=== PATIENT | female | born 1945 | race Caucasian/White ===

== ENCOUNTER 2017-11-25 12:07 | Emergency (ER) | payer MEDICARE, MEDICAID ==
[~2017-11-25] VITALS: Ht 147.3 cm; Wt 50.3 kg
[~2017-11-25 12:07] MED LIST: ALBU18HF2 INH; BENZ-49 PO
[2017-11-25 13:14] VITALS: BP 111/69
== END 2017-11-25 13:16 | disposition home or self-care (01) ==
LOC: ER 12:07
DX: S46.912A Strain of unspecified muscle, fascia and tendon at shoulder and upper arm level, left arm, initial encounter (principal); Z90.49 Acquired absence of other specified parts of digestive tract; Z79.899 Other long term (current) drug therapy; Z88.0 Allergy status to penicillin; Z88.5 Allergy status to narcotic agent; Z88.8 Allergy status to other drugs, medicaments and biological substances; X50.0XXA Overexertion from strenuous movement or load, initial encounter; Y93.89 Activity, other specified; Y92.89 Other specified places as the place of occurrence of the external cause; Y99.8 Other external cause status
CPT/HCPCS: 99282; A4565

== ENCOUNTER 2018-01-12 12:24 | Inpatient (IN) | payer MEDICARE, MEDICAID ==
[~2018-01-12] VITALS: Ht 147.3 cm; Wt 39.0 kg
[2018-01-12] MEDS ORDERED: ipratropium/albuterol 3ml nebule NEB ONE (12:40)
[2018-01-12] MEDS ORDERED: normal saline 1000ML IV soln IV ONE (12:40)
[2018-01-12 13:54] LABS: BASOPHILS % (AUTO) 0.4 % (0-1); EOSINOPHILS # (AUTO) 0.1 X10'3 (0-0.9); EOSINOPHILS % (AUTO) 1.5 % (0-6); HEMATOCRIT 39.4 % (35.0-45.0); HEMOGLOBIN 13.8 g/dl (12.0-16.0); LYMPHOCYTES # (AUTO) 1.9 X10'3 (1.1-4.8); LYMPHOCYTES % (AUTO) 31.8 % (21-51); MEAN CORPUSCULAR HEMOGLOBIN 30.1 PG (27.0-31.0); MEAN CORPUSCULAR HGB CONC 34.9 % (33.0-36.5); MEAN CORPUSCULAR VOLUME 86.3 FL (78-98); MEAN PLATELET VOLUME 7.7 FL (7.4-10.4); MONOCYTES # (AUTO) 0.7 X10'3 (0-0.9); MONOCYTES % (AUTO) 12.3 % (2-12); NEUTROPHILS # (AUTO) 3.3 X10'3 (1.8-7.7); PLATELET COUNT 224 X10'3 (140-440); RED BLOOD COUNT 4.57 X10'6 (4.20-5.60); RED CELL DISTRIBUTION WIDTH 13.3 % (11.5-14.5)
[2018-01-12 14:09] LABS: ALANINE AMINOTRANSFERASE 26 U/L (12-78); ALBUMIN 3.9 G/DL (3.4-5.0); ALBUMIN/GLOBULIN RATIO 1.1 (1.1-1.5); ALKALINE PHOSPHATASE 99 IU/L (46-116); ANION GAP 18 (8-16); ASPARTATE AMINO TRANSFERASE 47 U/L (10-37); BILIRUBIN,TOTAL 0.8 MG/DL (0.1-1.0); BLOOD UREA NITROGEN 31 MG/DL (7-18); BUN/CREATININE RATIO 25.2 (6.6-38.0); CALCIUM 8.8 MG/DL (8.5-10.1); CHLORIDE 95 MMOL/L (99-107); CREATININE 1.23 MG/DL (0.40-0.90); GLUCOSE 115 MG/DL (70-104); POTASSIUM 3.4 MMOL/L (3.5-5.1); SODIUM 133 MMOL/L (135-145); TOTAL CARBON DIOXIDE 19.9 MMOL/L (24-32); TOTAL PROTEIN 7.4 G/DL (6.4-8.2); eGFR 43 ML/MIN
[2018-01-12] MEDS ORDERED: aspirin 81mg tab.chew PO ONE (14:20)
[2018-01-12] MEDS ORDERED: enoxaparin 100mg/ml syringe SUBCUT ONE (14:20)
[2018-01-12] MEDS ORDERED: levoFLOXACIN-Levaquin 750MG/D5 150 ML IV ONE (14:25)
[2018-01-12] MEDS ORDERED: enoxaparin 40mg/0.4ml syringe SUBCUT ONE (14:30)
[2018-01-12] MEDS ORDERED: morphine 4 MG/ML inj SYRINge IV PRN (14:55)
[2018-01-12] MEDS ORDERED: ondansetron/PF 4mg/2ml inj IV ONE (14:55)
[2018-01-12] MEDS ORDERED: magnesium hydroxide 30ml (MOM) UD suspension PO PRN (15:15)
[2018-01-12] MEDS ORDERED: acetaminophen 325mg tablet PO PRN (15:15)
[2018-01-12] MEDS ORDERED: mag hydrox/Alum hydrox/simeth 30ml oral suspension PO PRN (15:15)
[2018-01-12 15:17] LABS: CLARITY,URINE CLOUDY (Clear); COLOR,URINE YELLOW (Yellow); GLUCOSE, URINE NEGATIVE (Neg); KETONES,URINE 40 mg/dl (Neg); LEUKOCYTE ESTERASE ,URINE NEGATIVE (Neg); NITRITES, URINE POSITIVE (Neg); OCCULT BLOOD,URINE SMALL (Neg); PH,URINE 5.5 (4.8-8.0); PROTEIN,URINE TRACE mg/dl (Neg); UA COLLECTION TYPE FOLEY CATH; UROBILINOGEN,URINE 0.2 E.U/dL (0.2-1.0)
[2018-01-12 15:25] LABS: HYALINE CASTS >30 /LPF (NEGATIVE)
[2018-01-12 15:27] LABS: BACTERIA,URINE 4+ /HPF (Neg); CELLULAR CAST 0-4 /LPF (NEGATIVE); MUCUS STRANDS FEW /LPF (Neg); RBC,URINE 0-2 /HPF (0-2); SQUAMOUS EPITHELIAL CELL,UR FEW /LPF (FEW); WBC CLUMPS,URINE FEW /HPF (NEGATIVE)
[2018-01-12 18:03] LABS: HEMOGLOBIN A1C 5.5 % (4.5-6.2)
[2018-01-12] MEDS ORDERED: NO HOME MEDS (18:22)
[2018-01-12 19:50] VITALS: BP 103/42
[2018-01-12] MEDS ORDERED: temazepam 15mg capsule PO PRN (21:00)
[2018-01-12] MEDS: doxycycline inj 100 MG in normal saline 100ml IV soln 100 ML IV SCH (21:29)
[2018-01-12 23:00] VITALS: BP 98/42
[2018-01-13 02:03] LABS: BASOPHILS % (AUTO) 0.6 % (0-1); EOSINOPHILS # (AUTO) 0.2 X10'3 (0-0.9); EOSINOPHILS % (AUTO) 4.1 % (0-6); HEMATOCRIT 29.5 % (35.0-45.0); HEMOGLOBIN 10.3 g/dl (12.0-16.0); LYMPHOCYTES # (AUTO) 1.5 X10'3 (1.1-4.8); MEAN CORPUSCULAR HEMOGLOBIN 30.4 PG (27.0-31.0); MEAN CORPUSCULAR HGB CONC 34.9 % (33.0-36.5); MEAN CORPUSCULAR VOLUME 87.3 FL (78-98); MEAN PLATELET VOLUME 8.1 FL (7.4-10.4); MONOCYTES # (AUTO) 0.5 X10'3 (0-0.9); MONOCYTES % (AUTO) 11.7 % (2-12); NEUTROPHILS # (AUTO) 1.7 X10'3 (1.8-7.7); NEUTROPHILS % (AUTO) 43.6 % (42-75); PLATELET COUNT 160 X10'3 (140-440); RED BLOOD COUNT 3.37 X10'6 (4.20-5.60); RED CELL DISTRIBUTION WIDTH 13.4 % (11.5-14.5); WHITE BLOOD COUNT 3.9 X10'3 (4.5-11.0)
[2018-01-13 02:18] LABS: ALBUMIN 2.7 G/DL (3.4-5.0); ANION GAP 8 (8-16); BLOOD UREA NITROGEN 17 MG/DL (7-18); BUN/CREATININE RATIO 22.4 (6.6-38.0); CALCIUM 7.3 MG/DL (8.5-10.1); CHLORIDE 105 MMOL/L (99-107); CHOL/HDL RATIO 6.3 (0.00-4.99); CHOLESTEROL 183 MG/DL (0-200); CREATININE 0.76 MG/DL (0.40-0.90); GLUCOSE 109 MG/DL (70-104); HDL CHOLESTEROL 29 MG/DL (35-60); LDL CHOLESTEROL 136 MG/DL (50-100); MAGNESIUM 1.8 MG/DL (1.5-2.4); POTASSIUM 3.2 MMOL/L (3.5-5.1); SODIUM 136 MMOL/L (135-145); TOTAL CARBON DIOXIDE 23.5 MMOL/L (24-32); TRIGLYCERIDES 99 MG/DL (20-135); eGFR 74 ML/MIN
[2018-01-13] MEDS ORDERED: potassium Cl 40MEQ/NS 500ml 500 ML IV PRN ×2 (02:35)
[2018-01-13 03:00] VITALS: BP 109/46
[2018-01-13 06:00] VITALS: BP 119/44
[2018-01-13] MEDS: doxycycline inj 100 MG in normal saline 100ml IV soln 100 ML IV SCH (07:57)
[2018-01-13 11:00] VITALS: BP 116/41
[2018-01-13] MEDS ORDERED: clopidogrel 75mg tablet PO SCH (14:50)
[2018-01-13] MEDS ORDERED: levoFLOXACIN-Levaquin 500mg/D5 100 ML IV SCH (14:50)
[2018-01-13 15:00] VITALS: BP 127/48
[2018-01-13] MEDS: doxycycline hyclate 100mg tablet.DR PO SCH (16:45)
[2018-01-13 19:00] VITALS: BP 148/43
[2018-01-13] MEDS ORDERED: carVEDilol 3.125mg tablet PO SCH (20:00)
[2018-01-13] MEDS: lactobacillus rhamnosus 10,000 MMU CELLS/CAPSULE PO SCH (20:14)
[2018-01-13 23:00] VITALS: BP 150/49
[2018-01-14 03:00] VITALS: BP 120/46
[2018-01-14 06:00] VITALS: BP 106/35
[2018-01-14 06:27] LABS: BASOPHILS % (AUTO) 0.5 % (0-1); EOSINOPHILS # (AUTO) 0.4 X10'3 (0-0.9); EOSINOPHILS % (AUTO) 7.6 % (0-6); HEMOGLOBIN 11.1 g/dl (12.0-16.0); LYMPHOCYTES # (AUTO) 2.4 X10'3 (1.1-4.8); LYMPHOCYTES % (AUTO) 48.9 % (21-51); MEAN CORPUSCULAR HEMOGLOBIN 30.1 PG (27.0-31.0); MEAN CORPUSCULAR HGB CONC 34.5 % (33.0-36.5); MEAN CORPUSCULAR VOLUME 87.2 FL (78-98); MEAN PLATELET VOLUME 8.1 FL (7.4-10.4); MONOCYTES # (AUTO) 0.3 X10'3 (0-0.9); MONOCYTES % (AUTO) 5.9 % (2-12); NEUTROPHILS # (AUTO) 1.8 X10'3 (1.8-7.7); NEUTROPHILS % (AUTO) 37.1 % (42-75); PLATELET COUNT 142 X10'3 (140-440); RED BLOOD COUNT 3.67 X10'6 (4.20-5.60); RED CELL DISTRIBUTION WIDTH 13.1 % (11.5-14.5); WHITE BLOOD COUNT 4.9 X10'3 (4.5-11.0)
[2018-01-14] MEDS: doxycycline hyclate 100mg tablet.DR PO SCH (06:38)
[2018-01-14 06:44] LABS: ALBUMIN 2.9 G/DL (3.4-5.0); ANION GAP 9 (8-16); BLOOD UREA NITROGEN 9 MG/DL (7-18); CALCIUM 8.4 MG/DL (8.5-10.1); CHLORIDE 106 MMOL/L (99-107); CREATININE 0.69 MG/DL (0.40-0.90); GLUCOSE 96 MG/DL (70-104); MAGNESIUM 1.5 MG/DL (1.5-2.4); POTASSIUM 3.7 MMOL/L (3.5-5.1); SODIUM 137 MMOL/L (135-145); TOTAL CARBON DIOXIDE 21.6 MMOL/L (24-32); eGFR 83 ML/MIN
[2018-01-14] MEDS ORDERED: atorvastatin 20mg tablet PO SCH (08:00)
[2018-01-14] MEDS: lactobacillus rhamnosus 10,000 MMU CELLS/CAPSULE PO SCH (08:25)
[2018-01-14] MEDS ORDERED: levoFLOXACIN 500mg tablet PO SCH (11:00)
[2018-01-14] MEDS ORDERED: CIPR-230 PO (11:42)
[2018-01-14] MEDS ORDERED: ATOR40TA71 PO (11:42)
[2018-01-14] MEDS ORDERED: METO-395 PO (11:42)
[2018-01-14] MEDS ORDERED: ASPI81TA52 PO (11:42)
== END 2018-01-14 14:20 | disposition home health service (06) | DRG 871 ==
LOC: ER 12:24 → ED HOLD 15:15 → EDBEDREQ 16:36 → CMPBEDREQ 19:41 → PCU 3S 19:43
PROVIDERS: ADMIT Family Medicine; ATTEND Family Medicine
DX: A41.9 Sepsis, unspecified organism (principal); I21.4 Non-ST elevation (NSTEMI) myocardial infarction; N17.0 Acute kidney failure with tubular necrosis; N18.4 Chronic kidney disease, stage 4 (severe); N39.0 Urinary tract infection, site not specified; E87.1 Hypo-osmolality and hyponatremia; Z60.2 Problems related to living alone; E87.6 Hypokalemia; J44.9 Chronic obstructive pulmonary disease, unspecified; Z90.49 Acquired absence of other specified parts of digestive tract; Z88.5 Allergy status to narcotic agent; Z88.0 Allergy status to penicillin; Z88.8 Allergy status to other drugs, medicaments and biological substances; Z79.899 Other long term (current) drug therapy; Z87.891 Personal history of nicotine dependence
CPT/HCPCS: 36415; 71046; 80048; 80053; 80061; 81001; 83036; 83605; 83735; 84145; 84484; 85025; 87040; 87070; 87077; 87088; 87186; 93005; 93306; 94640; 94760; 96372; 96374; 96375; 99285; A4315; A4565; A6257; J1650; J1956; J2405; J3480; J3490; J7030

== ENCOUNTER 2020-08-06 12:18 | Emergency (ER) | payer MEDICARE, MEDICAID ==
[~2020-08-06] VITALS: Ht 147.3 cm; Wt 49.4 kg
[~2020-08-06 12:18] MED LIST changes: -ALBU18HF2 INH; +ASPI81TA52 PO; +ATOR40TA71 PO; -BENZ-49 PO; +METO-395 PO
[2020-08-06 12:31] VITALS: BP 159/63
== END 2020-08-06 15:37 | disposition home or self-care (01) ==
LOC: ER 12:19
DX: R07.81 Pleurodynia (principal); Z90.89 Acquired absence of other organs; Z98.890 Other specified postprocedural states; Z88.6 Allergy status to analgesic agent; Z88.8 Allergy status to other drugs, medicaments and biological substances; Z88.5 Allergy status to narcotic agent; Z79.82 Long term (current) use of aspirin; Z79.899 Other long term (current) drug therapy
CPT/HCPCS: 71046; 99283

== ENCOUNTER 2021-09-02 09:28 | Emergency (ER) | payer MEDICARE, MEDICAID ==
[~2021-09-02] VITALS: Ht 147.3 cm; Wt 45.5 kg
[2021-09-02 09:47] VITALS: BP 131/49
== END 2021-09-02 13:09 | disposition home or self-care (01) ==
LOC: ER 09:28
DX: M25.532 Pain in left wrist (principal); M25.432 Effusion, left wrist; Z90.49 Acquired absence of other specified parts of digestive tract; Z88.8 Allergy status to other drugs, medicaments and biological substances; Z88.0 Allergy status to penicillin; Z88.6 Allergy status to analgesic agent; Z79.899 Other long term (current) drug therapy; Z79.82 Long term (current) use of aspirin
CPT/HCPCS: 73080; 99283

== ENCOUNTER 2023-01-12 17:14 | Inpatient (IN) | payer MEDICARE, MEDICAID ==
[~2023-01-12] VITALS: Ht 152.4 cm; Wt 45.5 kg
[2023-01-12] MEDS ORDERED: normal saline 1000ML IV soln IVB ONE (17:30)
[2023-01-12] MEDS ORDERED: ondansetron/PF 4mg/2ml inj IV ONE (17:30)
[2023-01-12 17:48] LABS: ABG BASE EXCESS -12.2 mmol/L (-2.0-2.0); ABG HCO3 10.2 mmol/L (22.0-26.0); ABG OXYGEN SATURATION 99.3 % (94-97); ABG PCO2 (T) 17.5 mmHg (32.0-45.0); ABG PO2 (T) 469.5 mmHg (75.0-100.0); ALLEN'S TEST POSITIVE; FCOHb 0.3 % (0.0-3.9); FLOW 15 L/min; FMetHb 0.4 % (0.0-1.5); FO2Hb 98.6 % (94-97); PATIENT TEMPERATURE 36.6; TOTAL HEMOGLOBIN 13.9 G/dl (12.0-16.0)
[2023-01-12 18:18] LABS: BASOPHILS # (AUTO) 0.1 X10'3 (0-0.2); BASOPHILS % (AUTO) 0.6 % (0-1); EOSINOPHILS % (AUTO) 0 % (0-6); HEMOGLOBIN 12.6 g/dl (12.0-16.0); LYMPHOCYTES # (AUTO) 2.2 X10'3 (1.1-4.8); LYMPHOCYTES % (AUTO) 19.6 % (21-51); MEAN CORPUSCULAR HEMOGLOBIN 31.2 PG (27.0-31.0); MEAN CORPUSCULAR HGB CONC 34.1 g/dL (33.0-36.5); MEAN CORPUSCULAR VOLUME 91.4 FL (78-98); MONOCYTES # (AUTO) 1.2 X10'3 (0-0.9); NEUTROPHILS # (AUTO) 7.7 X10'3 (1.8-7.7); NEUTROPHILS % (AUTO) 68.8 % (42-75); PLATELET COUNT 281 X10'3 (140-440); RED BLOOD COUNT 4.04 X10'6 (4.20-5.60); RED CELL DISTRIBUTION WIDTH 13.9 % (11.5-14.5); WHITE BLOOD COUNT 11.2 X10'3 (4.5-11.0)
--- NOTE | 2023-01-12 18:24 | NUR ---
Yvonne [phone] Vandana [phone]
--- NOTE | 2023-01-12 18:25 | NUR ---
Vandana [phone]
[2023-01-12 18:40] LABS: ALANINE AMINOTRANSFERASE 19 U/L (12-78); ALBUMIN 3.2 G/DL (3.4-5.0); ALBUMIN/GLOBULIN RATIO 1.3 (1.1-1.5); ALKALINE PHOSPHATASE 93 IU/L (46-116); ANION GAP 24 (8-16); ASPARTATE AMINO TRANSFERASE 26 U/L (10-37); BILIRUBIN,TOTAL 0.9 MG/DL (0.1-1.0); BLOOD UREA NITROGEN 50 MG/DL (7-18); BUN/CREATININE RATIO 18.1 (10.0-20.0); CALCIUM 7.9 MG/DL (8.5-10.1); CHLORIDE 119 MMOL/L (99-107); CREATININE 2.77 MG/DL (0.40-0.90); ETHANOL < 0.010 GM/DL (0.0-0.010); GLUCOSE 79 MG/DL (70-104); LIPASE 104 U/L (73-393); MAGNESIUM 2.4 MG/DL (1.5-2.4); POTASSIUM 3.1 MMOL/L (3.5-5.1); TOTAL CARBON DIOXIDE 15.3 MMOL/L (24-32); TOTAL PROTEIN 5.7 G/DL (6.4-8.2); eGFR 17 ML/MIN
[2023-01-12 18:46] LABS: SODIUM 158 MMOL/L (135-145)
[2023-01-12 18:50] LABS: ACETAMINOPHEN < 2.0 UG/ML (10-30)
[2023-01-12] MEDS ORDERED: sodium chloride 0.45% 1,000 ML IV ONE (19:50)
[2023-01-12] MEDS ORDERED: temazepam 15mg capsule PO PRN (21:00)
[2023-01-12] MEDS ORDERED: magnesium 4gm in 100ml NS 100 ML IV PRN (23:05)
[2023-01-12] MEDS ORDERED: magnesium hydroxide 30ml (MOM) UD suspension PO PRN (23:05)
[2023-01-12] MEDS ORDERED: potassium Cl 20 mEq SR tablet PO PRN (23:05)
[2023-01-12] MEDS ORDERED: magnesium Cl slow-release 64mg tablet PO PRN (23:05)
[2023-01-12] MEDS ORDERED: potassium Cl 40MEQ/1/2NS 520ml 520 ML IV PRN (23:05)
[2023-01-12] MEDS ORDERED: bisacodyl 10mg suppository rectal RC PRN (23:05)
[2023-01-12] MEDS ORDERED: diphenhydrAMINE 25mg capsule PO PRN (23:05)
[2023-01-12] MEDS ORDERED: magnesium 2GM in 50ml NS 50 ML IV PRN (23:05)
[2023-01-12] MEDS ORDERED: ondansetron/PF 4mg/2ml inj IV PRN (23:05)
[2023-01-12] MEDS ORDERED: mag hydrox/Alum hydrox/simeth 30ml oral suspension PO PRN (23:05)
[2023-01-12] MEDS ORDERED: ipratropium/albuterol 3ml nebule NEB PRN (23:05)
[2023-01-12] MEDS ORDERED: ondansetron 4mg rapidly disintigrating tab PO PRN (23:05)
[2023-01-12] MEDS ORDERED: diphenhydrAMINE 50 mg/ml inj IV PRN (23:05)
[2023-01-12] MEDS ORDERED: acetaminophen 650mg rectal suppository RC PRN (23:05)
[2023-01-12] MEDS ORDERED: acetaminophen 325mg tablet PO PRN ×2 (23:05)
[2023-01-12] MEDS ORDERED: heparin 25,000 UNIT/250ml bag 250 ML IV PRN (23:10)
[2023-01-12] MEDS ORDERED: azithromycin/NS 500mg/250ml 250 ML IV SCH (23:11)
[2023-01-12] MEDS: clopidogrel 75mg tablet PO SCH (23:30)
[2023-01-12 23:37] LABS: HEMOGLOBIN A1C 5.2 % (4.5-6.2)
[2023-01-12 23:45] LABS: CREATINE KINASE 526 U/L (26-192)
[2023-01-13 00:11] LABS: D-DIMER 2.46 MG/L FEU (0-0.50)
[2023-01-13 00:12] LABS: APTT 20 SECONDS (22-32)
[2023-01-13] MEDS ORDERED: NO HOME MEDS (00:18)
[2023-01-13] MEDS ORDERED: LIDOcaine 2% 10ml TOPICAL JELLY (Urojet) MM ONE (01:10)
[2023-01-13] MEDS: LidoCAINE 2% Topical Jelly 11mL syringe MM ONE ×2 (01:15→01:42)
[2023-01-13] MEDS: dextrose 5%-water 1,000 ML IV SCH ×2 (01:42→19:10)
[2023-01-13] MEDS: heparin 10,000 units/1 ML INJ IV PRN ×2 (02:06→15:56)
[2023-01-13 02:30] VITALS: BP 97/49
[2023-01-13 06:56] LABS: BASOPHILS # (AUTO) 0.1 X10'3 (0-0.2); BASOPHILS % (AUTO) 0.5 % (0-1); EOSINOPHILS % (AUTO) 0.2 % (0-6); HEMATOCRIT 37.1 % (35.0-45.0); HEMOGLOBIN 12.5 g/dl (12.0-16.0); LYMPHOCYTES # (AUTO) 2.7 X10'3 (1.1-4.8); LYMPHOCYTES % (AUTO) 24.5 % (21-51); MEAN CORPUSCULAR HEMOGLOBIN 30.6 PG (27.0-31.0); MEAN CORPUSCULAR HGB CONC 33.6 g/dL (33.0-36.5); MEAN CORPUSCULAR VOLUME 90.9 FL (78-98); MEAN PLATELET VOLUME 8.5 FL (7.4-10.4); MONOCYTES % (AUTO) 9.1 % (2-12); NEUTROPHILS # (AUTO) 7.3 X10'3 (1.8-7.7); NEUTROPHILS % (AUTO) 65.7 % (42-75); PLATELET COUNT 225 X10'3 (140-440); RED BLOOD COUNT 4.08 X10'6 (4.20-5.60); RED CELL DISTRIBUTION WIDTH 14.2 % (11.5-14.5)
[2023-01-13 07:00] VITALS: BP 96/41
[2023-01-13 07:02] LABS: ALANINE AMINOTRANSFERASE 30 U/L (12-78); ALBUMIN 3.1 G/DL (3.4-5.0); ALBUMIN/GLOBULIN RATIO 1.2 (1.1-1.5); ALKALINE PHOSPHATASE 82 IU/L (46-116); ANION GAP 15 (8-16); ASPARTATE AMINO TRANSFERASE 65 U/L (10-37); BILIRUBIN,TOTAL 0.9 MG/DL (0.1-1.0); BLOOD UREA NITROGEN 38 MG/DL (7-18); BUN/CREATININE RATIO 27.1 (10.0-20.0); CALCIUM 7.4 MG/DL (8.5-10.1); CHLORIDE 121 MMOL/L (99-107); CHOL/HDL RATIO 6.2 (0.00-4.99); CHOLESTEROL 267 MG/DL (0-200); GLUCOSE 157 MG/DL (70-104); HDL CHOLESTEROL 43 MG/DL (35-60); LDL CHOLESTEROL 170 MG/DL (50-100); TOTAL CARBON DIOXIDE 19.1 MMOL/L (24-32); TOTAL PROTEIN 5.6 G/DL (6.4-8.2); TRIGLYCERIDES 106 MG/DL (20-135); eGFR 36 ML/MIN
[2023-01-13 07:04] LABS: POTASSIUM 3.2 MMOL/L (3.5-5.1)
[2023-01-13 07:06] LABS: SODIUM 155 MMOL/L (135-145)
--- NOTE | 2023-01-13 07:15 | NUR ---
PAGER ID: [phone] MESSAGE: Nikita [id number], Pt has a critical lab value Na - 155. Garrison [phone]
--- NOTE | 2023-01-13 07:16 | NUR ---
Patient in room PCU 3026. I have received report from Nelson LIMA and had the opportunity to ask questions and assume patient care.
[2023-01-13] MEDS: pantoprazole 40mg Tablet.DR PO SCH ×2 (07:30→08:06)
--- NOTE | 2023-01-13 07:31 | NUR ---
CRITICAL LAB VALUE TAKEN FROM LAB, REPORTED TO PRIMARY RN.
[2023-01-13] MEDS: K and/or MAG REPLACEMENT MC SCH ×2 (08:00→20:00)
[2023-01-13] MEDS: atorvastatin 10mg tablet PO SCH ×2 (08:00→08:06)
[2023-01-13] MEDS: docusate sod 100mg capsule PO SCH ×3 (08:00→21:15)
[2023-01-13] MEDS: potassium Cl 20 mEq SR tablet PO PRN ×2 (08:05→21:15)
[2023-01-13] MEDS: clopidogrel 75mg tablet PO SCH (08:06)
--- NOTE | 2023-01-13 09:51 | NUR ---
PAGER ID: [phone] MESSAGE: Nikita [id number], Pt has critical lab value PTT 96. Garrison [phone]
[2023-01-13 11:00] VITALS: BP 106/43
--- NOTE | 2023-01-13 11:49 | NUR ---
MICRO RESULTS RECEIVED FROM LAB, REPORTED TO PRIMARY RN.
--- NOTE | 2023-01-13 11:57 | NUR ---
Pt refused morning meds. She took her Plavix first then when I tried to give her the rest of her meds she spit them out and said they tasted bad. Pt is confused and A&Ox2 currently.
--- NOTE | 2023-01-13 11:59 | NUR ---
Pt tested positive for blood cultures aerobic bottle drawn at @1752 from the left arm for Gram + cocci/ clusters. Dr Timmons was notified in person on the floor.
[2023-01-13] MEDS ORDERED: VANCOMYCIN 750MG IV in NS 250 ML IV ONE (12:30)
[2023-01-13 13:00] VITALS: BP 101/43
--- NOTE | 2023-01-13 15:04 | NUR ---
PAGER ID: [phone] MESSAGE: Nikita [id number], Does cardiology have anything planned for her or can we start a diet for her? Garrison [phone]
--- NOTE | 2023-01-13 16:03 | NUR ---
PAGER ID: [phone] MESSAGE: Nikita [id number], Has cardiology contacted you with a plan for pt? are we doing any studies or procedures for pt or can we feed her? Garrison [phone]
--- NOTE | 2023-01-13 16:24 | NUR ---
Pt's BP has been low with a 1500 BP of 101/43 (59). I took a manual BP after and it was 104/54.
[2023-01-13 18:00] VITALS: BP 103/37
--- NOTE | 2023-01-13 19:00 | NUR ---
Patient in room PCU 3026. I have received report from Garrison COLEMAN and had the opportunity to ask questions and assume patient care.
--- NOTE | 2023-01-13 19:06 | NUR ---
Problems reprioritized. Patient report given, questions answered & plan of care reviewed with Aaliyah COLEMAN.
[2023-01-13] MEDS ORDERED: vancomycin/NS 1 GM ADD-VANTAGE 250 ML IV SCH ×2 (20:00)
[2023-01-13 22:00] VITALS: BP 115/37
[2023-01-14] VITALS (13 sets, daily range): BP systolic 105–132; BP diastolic 33–73
[2023-01-14] MEDS ORDERED: regadenoson 0.4mg/5ml syringe IV PRN (01:45)
[2023-01-14] MEDS ORDERED: metoprolol tartrate 1mg/ml inj IV PRN (01:45)
[2023-01-14] MEDS ORDERED: nitroGLYCERIN 0.4mg SUBLingual tab SL PRN (01:45)
[2023-01-14] MEDS ORDERED: aminophylline 250mg/10ml inj. IV PRN (01:45)
[2023-01-14] MEDS: dextrose 5%-water 1,000 ML IV SCH (04:31)
--- NOTE | 2023-01-14 06:59 | NUR ---
Problems reprioritized. Patient report given, questions answered & plan of care reviewed with Marybeth COLEMAN.
--- NOTE | 2023-01-14 07:08 | NUR ---
Patient in room PCU 3026. I have received report from VIRGINIA Fischer and had the opportunity to ask questions and assume patient care.
[2023-01-14 07:48] LABS: BASOPHILS # (AUTO) 0.1 X10'3 (0-0.2); BASOPHILS % (AUTO) 0.7 % (0-1); EOSINOPHILS # (AUTO) 0.3 X10'3 (0-0.9); EOSINOPHILS % (AUTO) 3.6 % (0-6); HEMATOCRIT 32.9 % (35.0-45.0); HEMOGLOBIN 11.1 g/dl (12.0-16.0); LYMPHOCYTES # (AUTO) 2.8 X10'3 (1.1-4.8); MEAN CORPUSCULAR HEMOGLOBIN 30.8 PG (27.0-31.0); MEAN CORPUSCULAR HGB CONC 33.8 g/dL (33.0-36.5); MEAN PLATELET VOLUME 8.4 FL (7.4-10.4); MONOCYTES # (AUTO) 0.4 X10'3 (0-0.9); MONOCYTES % (AUTO) 4.8 % (2-12); NEUTROPHILS # (AUTO) 5.1 X10'3 (1.8-7.7); NEUTROPHILS % (AUTO) 58.9 % (42-75); PLATELET COUNT 173 X10'3 (140-440); RED BLOOD COUNT 3.62 X10'6 (4.20-5.60); RED CELL DISTRIBUTION WIDTH 13.7 % (11.5-14.5); WHITE BLOOD COUNT 8.6 X10'3 (4.5-11.0)
[2023-01-14 07:58] LABS: ALANINE AMINOTRANSFERASE 34 U/L (12-78); ALBUMIN 2.8 G/DL (3.4-5.0); ALBUMIN/GLOBULIN RATIO 1.1 (1.1-1.5); ALKALINE PHOSPHATASE 76 IU/L (46-116); ANION GAP 9 (8-16); ASPARTATE AMINO TRANSFERASE 52 U/L (10-37); BILIRUBIN,TOTAL 0.6 MG/DL (0.1-1.0); BLOOD UREA NITROGEN 14 MG/DL (7-18); BUN/CREATININE RATIO 17.9 (10.0-20.0); CALCIUM 7.7 MG/DL (8.5-10.1); CHLORIDE 113 MMOL/L (99-107); CREATININE 0.78 MG/DL (0.40-0.90); GLUCOSE 118 MG/DL (70-104); POTASSIUM 3.6 MMOL/L (3.5-5.1); SODIUM 143 MMOL/L (135-145); TOTAL CARBON DIOXIDE 20.7 MMOL/L (24-32); TOTAL PROTEIN 5.3 G/DL (6.4-8.2); eGFR 71 ML/MIN
[2023-01-14] MEDS: K and/or MAG REPLACEMENT MC SCH ×2 (08:00→20:00)
--- NOTE | 2023-01-14 08:11 | NUR ---
cardiac stress test on hold due to elevated troponins, primary RN is going to consult with Dr Timmons about plan of care
--- NOTE | 2023-01-14 10:42 | NUR ---
PAGER ID: [phone] MESSAGE: Pt in rm 3026B has a stress test and the audiovisual aids technician wants confirmation that you do indeed want to have this pt stressed today with a Troponin of 6681? Please advise. VIRGINIA Rueda [phone]
[2023-01-14] MEDS: docusate sod 100mg capsule PO SCH ×2 (10:49→20:00)
[2023-01-14] MEDS: atorvastatin 10mg tablet PO SCH (10:50)
[2023-01-14] MEDS: clopidogrel 75mg tablet PO SCH (10:50)
[2023-01-14] MEDS: pantoprazole 40mg Tablet.DR PO SCH (10:50)
--- NOTE | 2023-01-14 11:15 | NUR ---
contacted Brianna Oliveros NP and Dr Benavides regarding doing cardiac stress test with elevated troponins. Dr Benavides said to continue with doing stress test and he was aware of elevated troponins. He will be in house when we do stress test at 1330. Per primary RN, Marybeth, pt has been stable,no chest pain/discomfort today, skin is pink, warm, and dry, no SOB
[2023-01-14] MEDS ORDERED: vancomycin/NS 1 GM ADD-VANTAGE 250 ML IV SCH (13:00)
[2023-01-14] MEDS ORDERED: vancomycin inj 500 MG in normal saline 100ml IV soln 100 ML IV SCH ×2 (13:00→14:00)
--- NOTE | 2023-01-14 14:15 | NUR ---
Pt off the floor for Nuc Med test
--- NOTE | 2023-01-14 18:07 | NUR ---
PAGER ID: [phone] MESSAGE: Pt in [id number] Aleksandrakevin Carballoris please change her code status to DNR. Thank you. VIRGINIA Rueda [phone]
--- NOTE | 2023-01-14 18:45 | NUR ---
Patient in room PCU 3026. I have received report from Marybeth COLEMAN and had the opportunity to ask questions and assume patient care.
[2023-01-14] MEDS: metoprolol succinate 25mg (24-HOUR) SR. Tablet PO SCH (23:04)
[2023-01-15 02:00] VITALS: BP 116/41
[2023-01-15 06:00] VITALS: BP 108/40
--- NOTE | 2023-01-15 06:30 | NUR ---
Patient in room PCU 3026. I have received report from VIRGINIA Fischer and had the opportunity to ask questions and assume patient care.
[2023-01-15 06:49] LABS: BASOPHILS % (AUTO) 0.8 % (0-1); EOSINOPHILS # (AUTO) 0.5 X10'3 (0-0.9); EOSINOPHILS % (AUTO) 8.2 % (0-6); HEMATOCRIT 30.2 % (35.0-45.0); HEMOGLOBIN 10.1 g/dl (12.0-16.0); LYMPHOCYTES # (AUTO) 2.2 X10'3 (1.1-4.8); LYMPHOCYTES % (AUTO) 35.6 % (21-51); MEAN CORPUSCULAR HEMOGLOBIN 30.4 PG (27.0-31.0); MEAN CORPUSCULAR HGB CONC 33.6 g/dL (33.0-36.5); MEAN CORPUSCULAR VOLUME 90.5 FL (78-98); MEAN PLATELET VOLUME 8.3 FL (7.4-10.4); MONOCYTES # (AUTO) 0.3 X10'3 (0-0.9); MONOCYTES % (AUTO) 5.5 % (2-12); NEUTROPHILS # (AUTO) 3.1 X10'3 (1.8-7.7); NEUTROPHILS % (AUTO) 49.9 % (42-75); PLATELET COUNT 183 X10'3 (140-440); RED BLOOD COUNT 3.33 X10'6 (4.20-5.60); RED CELL DISTRIBUTION WIDTH 13.4 % (11.5-14.5); WHITE BLOOD COUNT 6.3 X10'3 (4.5-11.0)
--- NOTE | 2023-01-15 07:02 | NUR ---
Problems reprioritized. Patient report given, questions answered & plan of care reviewed with Marybeth COLEMAN.
[2023-01-15 07:04] LABS: ALANINE AMINOTRANSFERASE 30 U/L (12-78); ALBUMIN 2.6 G/DL (3.4-5.0); ALBUMIN/GLOBULIN RATIO 1.1 (1.1-1.5); ALKALINE PHOSPHATASE 75 IU/L (46-116); ANION GAP 9 (8-16); ASPARTATE AMINO TRANSFERASE 34 U/L (10-37); BILIRUBIN,TOTAL 0.4 MG/DL (0.1-1.0); BLOOD UREA NITROGEN 8 MG/DL (7-18); BUN/CREATININE RATIO 11.8 (10.0-20.0); CALCIUM 7.9 MG/DL (8.5-10.1); CHLORIDE 113 MMOL/L (99-107); CREATININE 0.68 MG/DL (0.40-0.90); GLUCOSE 106 MG/DL (70-104); POTASSIUM 3.7 MMOL/L (3.5-5.1); SODIUM 144 MMOL/L (135-145); TOTAL CARBON DIOXIDE 22.1 MMOL/L (24-32); TOTAL PROTEIN 4.9 G/DL (6.4-8.2); eGFR 83 ML/MIN
[2023-01-15] MEDS: docusate sod 100mg capsule PO SCH ×2 (08:00→20:00)
[2023-01-15] MEDS: atorvastatin 10mg tablet PO SCH (08:02)
[2023-01-15] MEDS: pantoprazole 40mg Tablet.DR PO SCH (08:03)
[2023-01-15] MEDS: clopidogrel 75mg tablet PO SCH (08:03)
[2023-01-15] MEDS: K and/or MAG REPLACEMENT MC SCH ×2 (08:05→20:00)
[2023-01-15 11:00] VITALS: BP 108/31
[2023-01-15 15:00] VITALS: BP 108/36
[2023-01-15 18:48] VITALS: BP 106/37
--- NOTE | 2023-01-15 18:50 | NUR ---
Patient in room [facility] 302. I have received report from aJida COLEMAN and had the opportunity to ask questions and assume patient care. Addendum: 01/16/23 at 0056 by Uzma Rowe RN Patient in room [place] [address]. I have received report from Marybeth COLEMAN and had the opportunity to ask questions and assume patient care.
[2023-01-15] MEDS: metoprolol succinate 25mg (24-HOUR) SR. Tablet PO SCH (20:07)
[2023-01-15 22:00] VITALS: BP 113/30
[2023-01-16 02:00] VITALS: BP 139/43
[2023-01-16 06:00] VITALS: BP 118/37
[2023-01-16 06:18] LABS: BASOPHILS % (AUTO) 0.8 % (0-1); EOSINOPHILS # (AUTO) 0.4 X10'3 (0-0.9); EOSINOPHILS % (AUTO) 7.8 % (0-6); HEMATOCRIT 27.1 % (35.0-45.0); HEMOGLOBIN 9.4 g/dl (12.0-16.0); LYMPHOCYTES # (AUTO) 1.8 X10'3 (1.1-4.8); LYMPHOCYTES % (AUTO) 33.8 % (21-51); MEAN CORPUSCULAR HEMOGLOBIN 31.2 PG (27.0-31.0); MEAN CORPUSCULAR HGB CONC 34.8 g/dL (33.0-36.5); MEAN CORPUSCULAR VOLUME 89.7 FL (78-98); MEAN PLATELET VOLUME 8.9 FL (7.4-10.4); MONOCYTES # (AUTO) 0.3 X10'3 (0-0.9); MONOCYTES % (AUTO) 5.4 % (2-12); NEUTROPHILS # (AUTO) 2.8 X10'3 (1.8-7.7); NEUTROPHILS % (AUTO) 52.2 % (42-75); PLATELET COUNT 180 X10'3 (140-440); RED BLOOD COUNT 3.03 X10'6 (4.20-5.60); RED CELL DISTRIBUTION WIDTH 13.3 % (11.5-14.5); WHITE BLOOD COUNT 5.4 X10'3 (4.5-11.0)
--- NOTE | 2023-01-16 06:33 | NUR ---
Patient in room PCU 3026. I have received report from Anatoliy COLEMAN and had the opportunity to ask questions and assume patient care.
--- NOTE | 2023-01-16 06:37 | NUR ---
Problems reprioritized. Patient report given, questions answered & plan of care reviewed with Yvonne LIMA.
[2023-01-16 06:51] LABS: ALANINE AMINOTRANSFERASE 26 U/L (12-78); ALBUMIN 2.6 G/DL (3.4-5.0); ALBUMIN/GLOBULIN RATIO 1.1 (1.1-1.5); ALKALINE PHOSPHATASE 70 IU/L (46-116); ANION GAP 8 (8-16); ASPARTATE AMINO TRANSFERASE 23 U/L (10-37); BILIRUBIN,TOTAL 0.3 MG/DL (0.1-1.0); BLOOD UREA NITROGEN 9 MG/DL (7-18); BUN/CREATININE RATIO 13.8 (10.0-20.0); CHLORIDE 115 MMOL/L (99-107); CREATININE 0.65 MG/DL (0.40-0.90); GLUCOSE 95 MG/DL (70-104); POTASSIUM 3.8 MMOL/L (3.5-5.1); SODIUM 147 MMOL/L (135-145); TOTAL CARBON DIOXIDE 24.2 MMOL/L (24-32); TOTAL PROTEIN 4.9 G/DL (6.4-8.2); eGFR 88 ML/MIN
[2023-01-16] MEDS: K and/or MAG REPLACEMENT MC SCH ×2 (07:49→08:05)
[2023-01-16] MEDS: atorvastatin 10mg tablet PO SCH (08:00)
[2023-01-16] MEDS: clopidogrel 75mg tablet PO SCH (08:00)
[2023-01-16] MEDS: docusate sod 100mg capsule PO SCH (08:00)
[2023-01-16] MEDS: pantoprazole 40mg Tablet.DR PO SCH (09:14)
[2023-01-16 11:00] VITALS: BP 116/35
[2023-01-17] MEDS ORDERED: VANCOMYCIN LEVEL IV ONE (12:30)
== END 2023-01-16 15:41 | DRG 280 ==
LOC: ER 17:15 → ED HOLD 23:08 → PCU 3S 01-13 02:45
PROVIDERS: ADMIT Family Medicine; ATTEND Internal Medicine
PROC: 4A02XM4 Measurement of Cardiac Total Activity, External Approach (ICD-10-PCS; principal; 2023-01-14)
PROC: 3E073KZ Introduction of Other Diagnostic Substance into Coronary Artery, Percutaneous Approach (ICD-10-PCS; 2023-01-14)
DX: I11.0 Hypertensive heart disease with heart failure (principal); G93.41 Metabolic encephalopathy; I21.A1 Myocardial infarction type 2; J18.9 Pneumonia, unspecified organism; J96.01 Acute respiratory failure with hypoxia; I50.43 Acute on chronic combined systolic (congestive) and diastolic (congestive) heart failure; R64 Cachexia; N17.9 Acute kidney failure, unspecified; E87.0 Hyperosmolality and hypernatremia; E87.20 Acidosis, unspecified; Z68.1 Body mass index [BMI] 19.9 or less, adult; E78.5 Hyperlipidemia, unspecified; I70.0 Atherosclerosis of aorta; E86.0 Dehydration; E87.6 Hypokalemia; I27.20 Pulmonary hypertension, unspecified; Z79.02 Long term (current) use of antithrombotics/antiplatelets; Z88.6 Allergy status to analgesic agent; Z90.49 Acquired absence of other specified parts of digestive tract; Z91.199 Patient's noncompliance with other medical treatment and regimen due to unspecified reason; Z79.899 Other long term (current) drug therapy; Z88.0 Allergy status to penicillin; Z88.8 Allergy status to other drugs, medicaments and biological substances; Z79.82 Long term (current) use of aspirin
CPT/HCPCS: 36415; 36600; 70450; 71045; 71250; 74176; 78452; 80053; 80061; 80320; 80329; 82550; 82803; 82948; 83036; 83605; 83690; 83735; 83880; 84443; 84484; 85018; 85025; 85379; 85610; 85730; 87040; 87077; 87081; 87186; 93005; 93017; 93306; 94640; 94760; 96374; 97161; 97530; 99285; A4314; A4615; A6446; A6449; A9500; C1758; G0378; J0456; J1644; J2405; J2785; J3370; J3480; J3490; J7030; J7050; J7070